=== PATIENT | female | born 1955 | race Hispanic/Latino ===

== ENCOUNTER → 2024-12-02 | Day surgery (SDC) | payer MEDICARE ==
[2024-12-01 11:25] LABS: BASOPHILS % 0.7 % (0.0-1.0); EOSINOPHILS % 1.3 % (0.0-6.0); LYMPHOCYTES % 28.9 % (18.0-39.1); MONOCYTES % 7.2 % (4.4-11.3); NEUTROPHILS % 61.5 % (38.7-80.0); RED CELL DISTRIBUTION WIDTH 11.9 % (11.7-14.4)
[2024-12-01 13:59] LABS: INR 0.83
[~2024-12-02] MED LIST: ATENOLOL50 MG PO; BUPIVACAINE 0.5%/EPI 30 ML SDV INJ ONE; CELEBREX200 MG PO; CLOPIDOGREL75 MG PO; CRESTOR40 MG PO; D3-5000125 MCG; DEXAMETHASONE SOD PHOS INJ 4 MG/ML SDV ONE; DULOXETINE HCL30 MG PO; ELDERBERRY350 MG; EPHEDRINE SULFATE INJ 50 MG/ML VIAL ONE; FENTANYL CITRATE/PF 100MCG/2 ML INJ ONE; HYDROCODON-ACE1 EA11 PO; HYDROCODONE/APAP 10MG-325MG TAB ONE; HYDROMORPHONE 1MG/1ML INJ ONE; LABETALOL HCL 20 ML ONE; LEVOCETIRIZINE D5 MG PO; LEVOTHYROXINE50 MCG PO; LEVOTHYROXINE75 MCG PO; LIDOCAINE HCL 2% LOCAL INJ 5 ML SDV VIAL INJ ONE; LYRICA50 MG PO; MAGNESIUM100 MG; MIDAZOLAM HCL 2 MG/2 ML VIAL ONE; MONTELUKAST SOD10 MG PO; NITROGLYCERIN0.4 MG SL; ONDANSETRON HCL INJ 2MG/ML 2ML 2 MG/ML VIAL ONE; PROPOFOL IV EMULSION 10 MG/ML 20 ML VIAL ONE; ROCURONIUM BROMIDE 1 ML IV ONE; ROPIVACAINE/EPI/CLONIDINE/KET 50 ML SYRINGE INJ ONE; SUGAMMADEX SODIUM 200 MG/2 ML VIAL IV ONE; VALIUM5 MG PO; VENTOLIN HFA18 GM INH
[2024-12-02 12:43] LABS: EST GLOMERULAR FILTRATION RATE 93.0 ML/MIN (>=60)
[2024-12-02] MEDS: CEFAZOLIN SODIUM 2 GM ONE (12:49)
[2024-12-02] MEDS: LACTATED RINGER'S 1,000 ML ONE (12:49)
[2024-12-02 15:36] VITALS: TEMP 97
[2024-12-02] MEDS: FENTANYL CITRATE/PF 100MCG/2 ML INJ IV ONE (15:37)
[2024-12-02] MEDS: HYDROMORPHONE 1MG/1ML INJ IV ONE ×2 (15:50→15:55)
[2024-12-02] MEDS: HYDROCODONE/APAP 10MG-325MG TAB PO ONE (16:35)
[2024-12-02 17:20] VITALS: BP 140/82; PULSE 66; RESP 16; O2SAT 98
== END | disposition home or self-care (01) ==
LOC: OR 10:52
PROVIDERS: ATTEND Orthopaedic Surgery
DX: M16.11 Unilateral primary osteoarthritis, right hip (principal); G89.28 Other chronic postprocedural pain; M70.61 Trochanteric bursitis, right hip; M06.9 Rheumatoid arthritis, unspecified; M81.0 Age-related osteoporosis without current pathological fracture; I10 Essential (primary) hypertension; E78.5 Hyperlipidemia, unspecified; I34.1 Nonrheumatic mitral (valve) prolapse; E03.9 Hypothyroidism, unspecified; M54.2 Cervicalgia; M54.9 Dorsalgia, unspecified; Z01.812 Encounter for preprocedural laboratory examination; Z01.818 Encounter for other preprocedural examination; Z79.02 Long term (current) use of antithrombotics/antiplatelets; Z79.899 Other long term (current) drug therapy; Z87.891 Personal history of nicotine dependence
CPT/HCPCS: 27130; 36415 ×2; 71046; 72170; 80048; 85025; 85610; 85730; 86850; 86900; 97110; 97116; 97161; 97530; C1713 ×3; C1776 ×3; J1100; J1171; J2003; J2250; J2405; J2704; J3010; J3490; J7121; 76000